=== PATIENT | male | born 1950 | race Caucasian/White ===

== ENCOUNTER 2019-05-02 11:47 | Observation (INO) ==
--- OUTSIDE RECORDS SUMMARY | 2019-05-02 11:51 | External Medical Summary | Continuity of Care Document ---
:1950 Author Name Veronica Bravo, Provider Address Unavailable Unavailable , Care Team Providers Name Role Phone Grey Hunt [email or web address] PCP, UNKNOWN Unavailable Unavailable Problems Active medical history not documented Allergies and Adverse Reactions Allergy history not documented Medications Medications not documented Procedures Procedures not documented Immunizations Immunizations not documented Plan of Treatment Planned Observations Planned Goals not documented Results No Known Results Results not documented
[2019-05-02] MEDS ORDERED: ASPIRIN CHEW 324 MG PO STA (12:00)
[2019-05-02 12:21] LABS: Basophils # (auto) 0.03 K/uL (0-0.2); Basophils % (auto) 0.4 %; Eosinophils % (auto) 2.7 %; Hematocrit (blood only) 42.5 % (42-52); Hemoglobin 14.7 g/dL (14.0-18.0); Immature Granulocytes # (auto) 0.03 K/uL (0.00-0.02); Immature Granulocytes % (auto) 0.4 %; Lymphocytes # (auto) 1.86 K/uL (1.2-3.4); Lymphocytes % (auto) 24.9 %; Mean Corpuscular Hgb Conc 34.6 g/dL (32-36); Mean Platelet Volume 9.8 fL (7.4-10.4); Monocytes # (auto) 0.54 K/uL (0.11-0.59); Monocytes % (auto) 7.2 %; Neutrophils # (auto) 4.82 K/uL (1.4-6.5); Neutrophils % (auto) 64.4 %; Platelet Count 260 K/uL (130-400); RDW Coefficient of Variation 12.4 % (11.5-14.5); RDW Standard Deviation 41.1 fL (36.4-46.3); Red Blood Count 4.67 M/uL (4.7-6.1); White Blood Count 7.48 K/uL (4.8-10.8)
--- NOTE | 2019-05-02 12:25 | XRay Report ---
XR chest 1V portable CLINICAL HISTORY: Atypical chest pain COMPARISON STUDY: No previous studies for comparison. FINDINGS: The heart is mildly enlarged. There are postsurgical changes of a midline sternotomy. There is no failure. There is no focal pulmonary consolidation. There are no pleural effusions.[ IMPRESSION: No active disease in the chest. Electronically signed by: Frotino Clarke M.D. 05/02/2019 12:23 PM
[2019-05-02 12:32] LABS: INR 1.1 (0.9-1.1); Prothrombin Time 10.9 Seconds (9.0-12.0)
[2019-05-02 12:39] LABS: Alanine Aminotransferase 46 U/L (12-78); Albumin Level 3.7 gm/dl (3.4-5.0); Aspartate Aminotransferase 24 U/L (15-37); BUN Creatinine Ratio 18.6 (10-20); Blood Urea Nitrogen 16 mg/dl (7-18); Calcium 8.8 mg/dl (8.5-10.1); Carbon Dioxide 27 mmol/L (21-32); Chloride 105 mmol/L (98-107); Creatinine Clr Calc Pharmacy 89.2 ml/min; Est GFR (African American) 100.6; Est GFR (Non-African American) 86.8; Glucose 206 mg/dl (70-99); Potassium 4.1 mmol/L (3.5-5.1); Sodium 138 mmol/L (136-145)
[2019-05-02 12:44] LABS: Albumin Globulin Ratio 1.1 (0.9-2); Alkaline Phosphatase 117 U/L (45-117); Bilirubin,Total 0.6 mg/dl (0.2-1); Globulin 3.5 gm/dl (2.5-4.0); Total Protein 7.2 gm/dl (6.4-8.2); Troponin I < 0.015 ng/ml (0-0.045)
--- NOTE | 2019-05-02 13:05 | Emergency Department Note ---
Entered by Shayy Newton acting as a scribe for Aristides Silver DO History of Present Illness General Chief complaint: Chest Pain Stated complaint: CHEST PAIN Time Seen by Provider: 05/02/19 11:51 Source: patient and family Mode of arrival: ambulatory Limitations: no limitations History of Present Illness Provider complaint: chest pain Onset (ago): day(s) (a few) Location: chest Pain Consistency: + other (episodic) Quality: + other (tight) Relieved By: + medication Exacerbated By: + movement Associated symptoms: + shortness of breath and + other (numbness); no diaphore sis Treatments prior to arrival: aspirin and other (NTG) The patient is a 69 year old male who presents to the Emergency Room with complaints of episodic chest pain that began a few days ago. The patient reports that todays episode occurred around 0730 while he was having breakfast. He describes it as a tightness. He states that he did have some left arm numbness as well as an associated shortness of breath. 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 The patient explains that he did have an episode the night before that lasted 20 minutes. He also reports that he did take a nitroglycerin which did help. He states that movement worsens his pain. He also notes that todays episode lasted 15 minutes. He denies any shortness of breath when lying flat. He explains that he did have [address] Jones four years ago but denies any cardiac stents. He reports that his last heart catheterization was in February 2015. He also states that he had not taken any nitroglycerin since this time. He denies any current chest pain. He denies taking any blood thinners but notes he does take a daily low-dose aspirin. He reports that he did take one this morning. The at bedside states that the patient looked dumont during this mornings episode but denies any diaphoresis. Home Medications Home Medications Medication Instructions Recorded Confirmed Type ascorbic acid (vitamin C) [Vitamin 500 mg PO QAM 05/02/19 05/02/19 History C] aspirin 81 mg PO DAILY 05/02/19 05/02/19 History atorvastatin 80 mg PO HS 05/02/19 05/02/19 History benzonatate [Tessalon Perles] 100 mg PO TID PRN 05/02/19 05/02/19 History diphenhydramine-acetaminophen 2 tab PO HS PRN 05/02/19 05/02/19 History [Tylenol PM Extra Strength] ferrous sulfate 325 mg PO DAILY 05/02/19 05/02/19 History glipizide 10 mg PO BID 05/02/19 05/02/19 History levothyroxine [Levoxyl] 200 mcg PO QAM 05/02/19 05/02/19 History lisinopril 2.5 mg PO QPM 05/02/19 05/02/19 History metformin 500 mg PO BID 05/02/19 05/02/19 History montelukast 10 mg PO QAM 05/02/19 05/02/19 History nitroglycerin 0.4 mg SUBLINGUAL UD 05/02/19 05/02/19 History omega 2-pnr-khc-fish oil [Fish Oil] 1 cap PO QAM 05/02/19 05/02/19 History omeprazole 20 mg PO HS 05/02/19 05/02/19 History sertraline 25 mg PO QAM 05/02/19 05/02/19 History tramadol 50 mg PO Q6H PRN 05/02/19 05/02/19 History acetaminophen [Tylenol Extra 1,000 mg PO TID PRN #60 tab 05/03/19 Rx Strength] Allergies Allergy/AdvReac Type Severity Reaction Status Date / Time No Known Allergies Allergy Unverified 05/02/19 12:30 Past Med/Surg History Medical History Hypothyroidism (Chronic) Mood disorder (Chronic) Diabetes mellitus, type II (Chronic) CAD (coronary artery disease) (Chronic) Surgical History History of coronary artery bypass graft (Chronic) CABG x 4 at [facility] [place] 03/15/15 History of cardiac cath (Chronic ~02/2015) Family History Other Family history unknown Social History Preferred Language: Kiswahili Communication Ability: Effective Pharmacist 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 Beliefs That Will Affect Care: None marital status: Current Living Situation: Spouse Other Information That Helps Us Care for You: No Feels Safe at Home: Yes Safety Concerns: Feels Safe At This Time Smoking Status: Former smoker Tobacco Type: cigarettes and smokeless tobacco Years Smoked: 60 Cigarettes Per Day: no longer for awhile Do You Dip or Chew Tobacco: No Smoking End Date: no longer for awhile Second Hand Exposure: No T obacco Cessation Education Requested by Patient: No Hx Alcohol Use: Yes Alcohol type: beer Hx Substance Use: No Review of Systems See HPI for pertinent positives & negatives. and A total of 10 systems reviewed and were otherwise negative Physical Exam Vital Signs Vital Signs - 24 hr 05/02/19 11:48 05/02/19 11:55 05/02/19 11:58 Temperature 36.9 C Temperature Source Oral Sepsis Recent Fever Within 48 Hours Yes Sepsis New/Unexplained Change in Mental Status No Sepsis Action Taken by Nursing No Action Required Pulse Rate 87 62 Pulse Rate [Left Finger] Pulse Rate from SpO2 Sensor 63 Respiratory Rate 16 15 Respiratory Effort / Characteristics Non-Labored Respiratory Depth Normal Blood Pressure 155/81 H 147/92 H Blood Pressure [Left Arm] Blood Pressure Mean 105 110 Blood Pressure Mean [Left Arm] Pulse Oximetry 94 94 Oxygen Delivery Method Room Air Room Air 05/02/19 12:02 05/02/19 12:20 05/02/19 12:50 Temperature Temperature Source Sepsis Recent Fever Within 48 Hours Sepsis New/Unexplained Change in Mental Status Sepsis Action Taken by Nursing Pulse Rate 68 61 Pulse Rate [Left Finger] 63 Pulse Rate from SpO2 Sensor 68 Respiratory Rate 22 18 Respiratory Effort / Characteristics Respiratory Depth Blood Pressure Blood Pressure [Left Arm] 154/83 H Blood Pressure Mean Blood Pressure Mean [Left Arm] 106 Pulse Oximetry 94 95 Oxygen Delivery Method Room Air Room Air 05/02/19 13:31 Temperature Temperature Source Sepsis Recent Fever Within 48 Hours Sepsis New/Unexplained Change in Mental Status Sepsis Action Taken by Nursing Pulse Rate Pulse Rate [Left Finger] 58 L Pulse Rate from SpO2 Sensor Respiratory Rate 22 Respiratory Effort / Characteristics Respiratory Depth Blood Pressure Blood Pressure [Left Arm] 153/86 H Blood Pressure Mean Blood Pressure Mean [Left Arm] 108 Pulse Oximetry 95 Oxygen Delivery Method Room Air GENERAL: Patient is awake, alert, and in no acute distress.Patient is resting comfortably and showing no signs of anxiety EYES: The conjunctivae are clear. The pupils are round and reactive. EARS, NOSE, MOUTH AND THROAT: The nose is without any evidence of any deformity. Mucous membranes are moist.Tongue is midline NECK: The neck is nontender and supple. RESPIRATORY: Normal respiratory effort is noted. There is no evidence of wheezing rhonchi or rales to auscultation. CARDIOVASCULAR: Regular rate and rhythm noted. There no murmurs rubs or gallops normal S1 normal S2 GASTROINTESTINAL: The abdomen is soft. Bowel sounds are present in all quadrants. Abdomen is nontender. MUSCULOSKELETAL/EXTREMITIES: There is no evidence of gross deformity. Full range of motion is noted in the hips and shoulders. SKIN: There is no obvious evidence of any rash. There are no petechiae, pallor or cyanosis noted. NEUROLOGIC: Patient is awake alert and oriented x3. Course 1153: Past medical records reviewed. The patient was evaluated in room C3. A complete history and physical examination was performed. 1227: I checked on the patient. 1255: I updated the patient in his results and he is agreeable with the treatment plan. 1302: I reviewed the patient's case with Cass Bryant PA-C - [facility]. She, in conjunction with Dr. Bailey, will evaluate the patient for further management. Administered Medications Discontinued Medications Acetaminophen (Tylenol) 650 mg PO Q4H PRN PRN Reason: Pain or Fever Stop: 06/01/19 15:10 Last Admin: 05/03/19 00:22 Dose: 650 mg Documented by: [id number] Ascorbic Acid (Vitamin C) 500 mg PO QAM PATRICIO Stop: 06/02/19 08:59 Last Admin: 05/03/19 08:53 Dose: 500 mg Documented by: [id number] Aspirin (Aspirin) 243 mg PO NOW [facility] Stop: 05/02/19 12:01 Last Admin: 05/02/19 12:15 Dose: 243 mg Documented by: [id number] Aspirin (Ecotrin Ectab) 81 mg PO DAILY PATRICIO Stop: 06/02/19 08:59 Last Admin: 05/03/19 08:54 Dose: 81 mg Documented by: [id number] Atorvastatin Calcium (Lipitor) 80 mg PO HS PATRICIO Stop: 06/01/19 20:59 Last Admin: 05/02/19 20:18 Dose: 80 mg Documented by: [id number] Enoxaparin Sodium (Lovenox) 40 mg SQ Q24H PATRICIO Stop: 06/01/19 15:59 Last Admin: 05/02/19 16:31 Dose: 40 mg Documented by: [id number] Ferrous Sulfate (Feosol) 325 mg PO DAILY PATRICIO Stop: 06/02/19 08:59 Last Admin: 05/03/19 08:54 Dose: 325 mg Documented by: [id number] Fish Oil ([place]-3 (Purified Fish Oil)) 1 gm PO QAM [facility] Stop: 06/02/19 08:59 Last Admin: 05/03/19 08:54 Dose: 1 gm Documented by: [id number] Insulin Aspart (Novolog Flexpen) 0 units SC ACHS PATRICIO Stop: 06/01/19 15:29 Last Admin: 05/03/19 12:00 Dose: 4 units Documented by: [id number] Cosigned by: [id number] Admin: 05/03/19 08:54 Dose: 1 units Documented by: [id number] Cosigned by: [id number] Admin: 05/02/19 20:18 Dose: Not Given Documented by: [id number] Cosigned by: [id number] Admin: 05/02/19 16:32 Dose: 10 units Documented by: [id number] Cosigned by: [id number] Levothyroxine Sodium (Synthroid) 200 mcg PO DAILYBB [facility] Stop: 06/02/19 06:29 Last Admin: 05/03/19 05:57 Dose: 200 mcg Documented by: [id number] Lisinopril (Zestril) 2.5 mg PO QPM [facility] Stop: 06/01/19 20:59 Last Admin: 05/02/19 20:18 Dose: 2.5 mg Documented by: [id number] Montelukast Sodium (Singulair) 10 mg PO QAM PATRICIO Stop: 06/02/19 08:59 Last Admin: 05/03/19 08:54 Dose: 10 mg Documented by: [id number] Pantoprazole Sodium (Protonix) 40 mg PO HS [facility] Stop: 06/01/19 20:59 Last Admin: 05/02/19 20:18 Dose: 40 mg Documented by: [id number] Perflutren Lipid Microsphere (Definity) 1.5 ml IV ONCE ONE Stop: 05/03/19 11:47 Last Admin: 05/03/19 11:47 Dose: 2 ml Documented by: [id number] Sertraline HCl (Zoloft) 25 mg PO QAM PATRICIO Stop: 06/02/19 08:59 Last Admin: 05/03/19 08:53 Dose: 25 mg Documented by: [id number] Medical Decision Making Differential Diagnosis Differential diagnosis includes: cardiac ischemia, aortic dissection, pulmonary embolism, pneumonia, pneumothorax, musculoskeletal, infections, pericarditis, myocarditis, unstable angina, esophageal rupture, gastrointestinal, as well as others were entertained. Medical Records Attestation: I reviewed the patient's medical records. Home Medications Current Medication List: was personally reviewed by me Laboratory Data Attestation: I reviewed the patient's lab results. Result diagrams: 05/03/19 06:32 05/03/19 06:32 Lab Results 05/02/19 05/02/19 05/02/19 Range/Units 12:08 12:08 12:08 WBC 7.48 (4.8-10.8) K/uL RBC 4.67 L (4.7-6.1) M/uL Hgb 14.7 (14.0-18.0) g/dL Hct 42.5 (42-52) % MCV 91.0 (80-100) fL MCH 31.5 (25-34) pg MCHC 34.6 (32-36) g/dL RDW Std Deviation 41.1 (36.4-46.3) fL RDW Coeff of Liang 12.4 (11.5-14.5) % Plt Count 260 (130-400) K/uL MPV 9.8 (7.4-10.4) fL Immature Gran % (Auto) 0.4 % Neut % (Auto) 64.4 % Lymph % (Auto) 24.9 % [place] % (Auto) 7.2 % Eos % (Auto) 2.7 % Baso % (Auto) 0.4 % Immature Gran # (Auto) 0.03 H (0.00-0.02) K/uL Neut # (Auto) 4.82 (1.4-6.5) K/uL Lymph # (Auto) 1.86 (1.2-3.4) K/uL [place]ascade # (Auto) 0.54 (0.11-0.59) K/uL Eos # (Auto) 0.20 (0-0.5) K/uL Baso # (Auto) 0.03 (0-0.2) K/uL PT 10.9 (9.0-12.0) Seconds INR 1.1 (0.9-1.1) APTT 26.0 (21.0-31.0) Seconds PTT Ratio 1.0 Sodium 138 (136-145) mmol/L Potassium 4.1 (3.5-5.1) mmol/L Chloride 105 (98-107) mmol/L Carbon Dioxide 27 (21-32) mmol/L Anion Gap 6.0 (3-11) BUN 16 (7-18) mg/dl Creatinine 0.87 (0.6-1.4) mg/dl Est Cr Clr Drug Dosing 89.2 ml/min Est GFR ( Amer) 100.6 Est GFR (Non-Af Amer) 86.8 BUN/Creatinine Ratio 18.6 (10-20) Glucose 206 H (70-99) mg/dl Calcium 8.8 (8.5-10.1) mg/dl Total Bilirubin 0.6 (0.2-1) mg/dl AST 24 (15-37) U/L ALT 46 (12-78) U/L Alkaline Phosphatase 117 (45-117) U/L Troponin I < 0.015 (0-0.045) ng/ml Total Protein 7.2 (6.4-8.2) gm/dl Albumin 3.7 (3.4-5.0) gm/dl Globulin 3.5 (2.5-4.0) gm/dl Albumin/Globulin Ratio 1.1 (0.9-2) Lipase 118 (73-393) U/L Urine Color Urine Appearance (Clear) Urine pH (4.5-7.5) Ur Specific [place] (1.000-1.030) Urine Protein (Negative) Urine Glucose (UA) (Negative) Urine Ketones (Negative) Urine Blood (Negative) Urine Nitrite (Negative) Urine Bilirubin (Negative) Urine Urobilinogen (Negative) Ur Leukocyte Esterase (Negative) 05/02/19 Range/Units 13:30 WBC (4.8-10.8) K/uL RBC (4.7-6.1) M/uL Hgb (14.0-18.0) g/dL Hct (42-52) % MCV (80-100) fL MCH (25-34) pg MCHC (32-36) g/dL RDW Std Deviation (36.4-46.3) fL RDW Coeff of Liang (11.5-14.5) % Plt Count (130-400) K/uL MPV (7.4-10.4) fL Immature Gran % (Auto) % Neut % (Auto) % Lymph % (Auto) % [place] % (Auto) % Eos % (Auto) % Baso % (Auto) % Immature Gran # (Auto) (0.00-0.02) K/uL Neut # (Auto) (1.4-6.5) K/uL Lymph # (Auto) (1.2-3.4) K/uL [place] # (Auto) (0.11-0.59) K/uL Eos # (Auto) (0-0.5) K/uL Baso # (Auto) (0-0.2) K/uL PT (9.0-12.0) Seconds INR (0.9-1.1) APTT (21.0-31.0) Seconds PTT Ratio Sodium (136-145) mmol/L Potassium (3.5-5.1) mmol/L Chloride (98-107) mmol/L Carbon Dioxide (21-32) mmol/L Anion Gap (3-11) BUN (7-18) mg/dl Creatinine (0.6-1.4) mg/dl Est Cr Clr Drug Dosing ml/min Est GFR ( Amer) Est GFR (Non-Af Amer) BUN/Creatinine Ratio (10-20) Glucose (70-99) mg/dl Calcium (8.5-10.1) mg/dl Total Bilirubin (0.2-1) mg/dl AST (15-37) U/L ALT (12-78) U/L Alkaline Phosphatase (45-117) U/L Troponin I (0-0.045) ng/ml Total Protein (6.4-8.2) gm/dl Albumin (3.4-5.0) gm/dl Globulin (2.5-4.0) gm/dl Albumin/Globulin Ratio (0.9-2) Lipase (73-393) U/L Urine Color Yellow Urine Appearance Clear (Clear) Urine pH 5.5 (4.5-7.5) Ur Specific [place] 1.011 (1.000-1.030) Urine Protein Negative (Negative) Urine Glucose (UA) 1+ H (Negative) Urine Ketones Negative (Negative) Urine Blood Negative (Negative) Urine Nitrite Negative (Negative) Urine Bilirubin Negative (Negative) Urine Urobilinogen Negative (Negative) Ur Leukocyte Esterase Negative (Negative) Imaging Data Radiologist's Impression: Radiology results as stated below per my review and the radiologist's interpretation: XR chest 1V portable CLINICAL HISTORY: Atypical chest pain COMPARISON STUDY: No previous studies for comparison. FINDINGS: The heart is mildly enlarged. There are postsurgical changes of a midline sternotomy. There is no failure. There is no focal pulmonary consolidation. There are no pleural effusions.[ IMPRESSION: No active disease in the chest. Electronically signed by: Fortino Clarke M.D. 05/02/2019 12:23 PM ECG Data Attestation: I personally reviewed and interpreted this ECG as follows: Indication: chest pain Rate (beats per minute): 68 Rhythm: normal sinus Findings: no ST depression, no ST elevation and no ectopy Comparison ECG Date: no prior available Blood Pressure Blood Pressure Findings: Elevated blood pressure Blood Pressure Disposition: further management by hospitalist TIFFANIE Angeles The patient is a 69-year-old male who has a history of coronary artery disease and coronary artery bypass grafting who presented to the emergency department for an evaluation of chest discomfort. The patient has not had cardiac symptoms until recently. He has had at least 2 episodes where he has had to use nitroglycerin where as he is never had use nitroglycerin in the past. The patient's most recent episode occurred this morning. He did have some strenuous activity prior to the onset of the symptoms and took nitroglycerin which resolved his pain. I discussed the patient's laboratory and radiographic studies with him. I discussed the limitations of the emergency department work- up for chest pain with him. At this time he has no pain. Because of his history and comorbidities I discussed this case with the on-call [facility] hospitalist group. They have agreed to evaluate the patient in the emerge department for further management and disposition. Impression & Plan Chest pain Discharge Plan Visit Data *Final* Discharge Date/Time: 05/02/19 14:44 Chief Complaint: Chest Pain Stated Complaint: CHEST PAIN ED Provider: Aristides Silver Discharge Problem: Chest pain Patient Disposition: Admitted As Inpatient Condition: Good Discharge Instructions Interventions: ED Discharge Assessment Last Done: 05/02/19 14:44 The scribe's documentation has been prepared under my direction and personally reviewed by me in its entirety. I confirm that the note above accurately reflects all work, treatment, procedures, and medical decision making performed by me.
--- NOTE | 2019-05-02 14:18 | History & Physical Report ---
Date of Service May 02, 2019 Assessment & Plan (1) Chest pain: (2) History of coronary artery bypass graft: This is a 69-year-old male with a PMH of CAD (s/p CABG x 4 in 2014), DM II and hypothyroidism who presents with intermittent chest pain beginning 2 days ago that has since resolved. [place] [facility] Has not used ntg since 2015 until this morning, now pain free -Initial troponin negative. EKG with NSR, no ischemic changes. CXR without active disease in chest -Trend serial cardiac enzymes, check 2D echo, monitor on telemetry -Repeat EKG in am. Fasting lipid panel and a1c ordered -NPO after midnight for possible stress test -Routine cardiology consult (3) Diabetes mellitus, type II: A1c of 7.8 in Oct 2018. Repeat ordered -May be less controlled due to recent PO steroid courses for URIs this spring -Hold home agents -SSI while in-patient -BSG AC HS (4) CAD (coronary artery disease): Continue aspirin, statin (5) Hypothyroidism: Continue levothyroxine DVT Ppx: SQ lovenox Code status: FULL PCP: ESPERANZA Padilla Dispo: Observation tele. Plan to return home once medically stable. Patient seen in collaboration with Dr. Bailey. Please see addendum. History of Present Illness Chief Complaint: Chest pain Primary Care Provider: Larry Padilla PA-C This is a 69-year-old male with a PMH of CAD (s/p CABG x 4 in 2014), DM II, hypothyroidism who presents with intermittent chest pain beginning 2 days ago. Patient first experienced chest pain 2 nights ago when sitting in his recliner. Describes pain as squeezing across chest with radiation down left arm. It resolved spontaneously after 20 minutes. Earlier today, patient had an active morning with dog walking and first developed chest pain after sitting down for breakfast around 0730. Described it as a more intense squeezing pain across his chest with associated numbness in left arm and shortness of breath. No diaphoresis, nausea or vomiting. Episode lasted for 15 minutes and then resolved spontaneously. Had another episode a few hours later after working on a house project that resolved after 1 dose of nitro. Had third episode of pain just before lunch and was brought by to ED for further evaluation. Received aspirin in route and was chest pain-free by time of arrival. Denies any fever, chills, lightheadedness, headache, palpitations, SOB, wheezing, nausea, vomiting, abdominal pain, dysuria, diarrhea or constipation. Follows with Dr. Caicedo in cardiology clinic. Reports not having needed nitroglycerin since CABG in 2014 until this morning. Patient is hemodynamically stable. EKG with a normal sinus rhythm and no acute ischemic change. Initial troponin negative. Chest pain without active disease in chest. Will be monitored on telemetry. Allergies Allergy/AdvReac Type Severity Reaction Status Date / Time No Known Allergies Allergy Unverified 05/02/19 12:30 Home Medications Home Medications Medication Instructions Recorded Confirmed Type ascorbic acid (vitamin C) [Vitamin 500 mg PO QAM 05/02/19 05/02/19 History C] aspirin 81 mg PO DAILY 05/02/19 05/02/19 History atorvastatin 80 mg PO HS 05/02/19 05/02/19 History benzonatate [Tessalon Perles] 100 mg PO TID PRN 05/02/19 05/02/19 History diphenhydramine-acetaminophen 2 tab PO HS PRN 05/02/19 05/02/19 History [Tylenol PM Extra Strength] ferrous sulfate 325 mg PO DAILY 05/02/19 05/02/19 History glipizide 10 mg PO BID 05/02/19 05/02/19 History levothyroxine [Levoxyl] 200 mcg PO QAM 05/02/19 05/02/19 History lisinopril 2.5 mg PO QPM 05/02/19 05/02/19 History metformin 500 mg PO BID 05/02/19 05/02/19 History montelukast 10 mg PO QAM 05/02/19 05/02/19 History nitroglycerin 0.4 mg SUBLINGUAL UD 05/02/19 05/02/19 History omega 3-fsn-mtk-fish oil [Fish Oil] 1 cap PO QAM 05/02/19 05/02/19 History omeprazole 20 mg PO HS 05/02/19 05/02/19 History sertraline 25 mg PO QAM 05/02/19 05/02/19 History tramadol 50 mg PO Q6H PRN 05/02/19 05/02/19 History Past Med/Surg History Medical History Hypothyroidism (Chronic) Mood disorder (Chronic) Diabetes mellitus, type II (Chronic) CAD (coronary artery disease) (Chronic) Surgical History History of coronary artery bypass graft (Chronic) [place] [facility] [place] History of cardiac cath (Chronic ~02/2015) Family History Other Family history unknown Social History Preferred Language: [place] Communication Ability: Effective Customer Service Advocate Required: No Beliefs That Will Affect Care: None marital status: Current Living Situation: Spouse Other Information That Helps Us Care for You: No Feels Safe at Home: Yes Safety Concerns: Feels Safe At This Time Smoking Status: Former smoker Tobacco Type: cigarettes and smokeless tobacco Years Smoked: 60 Cigarettes Per Day: no longer for awhile Do You Dip or Chew Tobacco: No Smoking End Date: no longer for awhile Second Hand Exposure: No Tobacco Cessation Education Requested by Patient: No Hx Alcohol Use: Yes Alcohol type: beer Hx Substance Use: No Review of Systems Constitutional: no fever, no chills and no weakness Eyes: no diplopia Ear, Nose, Mouth, Throat: + nasal congestion; no sore throat and no dysphagia Respiratory: + dyspnea on exertion; no change in sputum, no dyspnea and no wheezing Cardiovascular: + chest pain and + radiating jaw, neck or arm pain; no palpitations, no syncope and no edema Gastrointestinal: no abdominal pain, no nausea, no vomiting and no change in stools Genitourinary: no dysuria Musculoskeletal: no muscle weakness Integumentary: no rash healing abscess on neck Neurologic: no gait abnormality, no falls, no localized weakness and no headache(s) Physical Exam Physical Exam: General Appearance: WD/WN, no apparent distress, resting comfortably Head: normocephalic, atraumatic Eyes: normal inspection, PERRL, EOMI ENT: hearing grossly normal, pharynx normal (moist mucous membranes) Neck: supple, no JVD, no adenopathy Respiratory/Chest: no chest wall tenderness, lungs clear to auscultation. No wheezes, rales or rhonci. No respiratory distress or accessory muscle use Cardiovascular: regular rate, rhythm, no murmur, normal peripheral pulses Abdomen/GI: normal bowel sounds, soft, non-tender to palpation Extremities/Musculoskelatal: normal inspection, no calf tenderness, normal capillary refill, no pedal edema Neurologic/Psych: alert, normal mood/affect, oriented x 3 Skin: normal color, warm/dry Results & Data Vital Signs (Past 12 Hours) Vital Signs Temp Pulse Pulse Resp BP BP Pulse Ox 05/02/19 13:31 58 L 22 153/86 H 95 05/02/19 12:50 63 18 154/83 H 95 05/02/19 12:20 61 94 05/02/19 12:02 68 22 05/02/19 11:58 94 05/02/19 11:55 62 15 147/92 H 05/02/19 11:48 36.9 C 87 16 155/81 H 94 Laboratory Results Short CBC 05/02/19 Range/Units 12:08 WBC 7.48 (4.8-10.8) K/uL Hgb 14.7 (14.0-18.0) g/dL Hct 42.5 (42-52) % Plt Count 260 (130-400) K/uL BMP 05/02/19 12:08 Sodium 138 Potassium 4.1 Chloride 105 Carbon Dioxide 27 BUN 16 Creatinine 0.87 Glucose 206 H Calcium 8.8 Cardiac Enzymes 05/02/19 Range/Units 12:08 Troponin I < 0.015 (0-0.045) ng/ml Liver Function 05/02/19 Range/Units 12:08 Total Bilirubin 0.6 (0.2-1) mg/dl AST 24 (15-37) U/L ALT 46 (12-78) U/L Alkaline Phosphatase 117 (45-117) U/L Albumin 3.7 (3.4-5.0) gm/dl Urine 05/02/19 Range/Units 13:30 Urine Color Yellow Urine Appearance Clear (Clear) Urine pH 5.5 (4.5-7.5) Ur Specific [place] 1.011 (1.000-1.030) Urine Protein Negative (Negative) Urine Glucose (UA) 1+ H (Negative) Diagnostic Findings CXR: IMPRESSION: No active disease in the chest. ECG Rhythm: normal sinus Supervising Physician Co-Signing Physician Notes Pt was seen and examined. Agreed with Cass MATA exam, assessment and plan. 69-year-old male with a PMH of CAD (s/p CABG x 4 in 2014), DM II, hypothyroidism presents with chest pain. Pt said that 2 days ago he had chest pain while sitting in his recliner. He said that pain last about 20minutes. He said that today he had 3 episodes of chest pain and had to take a nitro subl. Chest XRay done in the ER showed no acute finding. Troponinx2 negative. EKG showed no ischemic changes. Continue aspirin and statin. Not on beta rigoberto, not sure why. Consider to add a low dose beta rigoberto. Will get an echo. Cardiology consult. Will keep NPO after midnight. Continue monitor in Tele. Please refer to Cass MATA documentation for other problems. MD Lynn
[2019-05-02 14:24] LABS: Appearance Urine Clear (Clear); Bilirubin Urine Negative (Negative); Blood Urine Negative (Negative); Color Urine Yellow; Glucose Urine UA 1+ (Negative); Ketones Urine Negative (Negative); Leukocyte Esterase Urine Negative (Negative); Nitrite Urine Negative (Negative); Protein Urine Negative (Negative); Specific Gravity Urine 1.011 (1.000-1.030); Urobilinogen Urine Negative (Negative); pH Urine 5.5 (4.5-7.5)
[2019-05-02] MEDS ORDERED: GLUCAGON FOR INJ 1 MG VIAL SQ PRN (15:11)
[2019-05-02] MEDS ORDERED: TRAMADOL HCL 50 MG TABLET PO PRN (15:11)
[2019-05-02] MEDS ORDERED: ACETAMINOPHEN 325 MG TAB PO PRN (15:11)
[2019-05-02] MEDS ORDERED: GLUCOSE 40% GEL 15 GM TUBE PO PRN (15:11)
[2019-05-02] MEDS ORDERED: NITROGLYCERIN SL 0.4 MG/TAB TAB SL PRN (15:11)
[2019-05-02] MEDS ORDERED: NON-FORMULARY MEDICATION (Diphenhydramine-Acetaminophen [Tylenol Pm Extra Strength] 2 TAB) PO PRN (15:11)
[2019-05-02] MEDS ORDERED: ONDANSETRON INJ 2 MG/ML 2 ML VIAL IV PRN (15:11)
[2019-05-02] MEDS ORDERED: BENZONATATE 100 MG CAPSULE PO PRN (15:11)
[2019-05-02] MEDS ORDERED: POLYETHYLENE (MIRALAX) 17 GM PACK PO PRN (15:11)
[2019-05-02] MEDS ORDERED: DEXTROSE 50% 50 ML SYRINGE IV PRN (15:11)
[2019-05-02] MEDS ORDERED: GLUCOSE 10 TABS/TUBE PO PRN (15:11)
[2019-05-02] MEDS ORDERED: CARBOHYDRATES FOR HYPOGLYCEMIA PO PRN (15:11)
[2019-05-02] MEDS ORDERED: ENOXAPARIN INJ 40 MG/0.4 ML SYR SQ SCH (16:00)
[2019-05-02] MEDS: INSULIN ASPART 100 UNITS/ML 3 ML PEN SC SCH ×2 (16:32→20:18)
[2019-05-02] MEDS ORDERED: ATORVASTATIN 40 MG TAB PO SCH (21:00)
[2019-05-02] MEDS ORDERED: PANTOprazole 40 MG TAB PO SCH (21:00)
[2019-05-02] MEDS ORDERED: LISINOPRIL 2.5 MG TAB PO SCH (21:00)
[2019-05-03] MEDS ORDERED: LEVOTHYROXINE SODIUM 200 MCG TABLET PO SCH (06:30)
[2019-05-03 06:51] LABS: Hematocrit (blood only) 40.5 % (42-52); Hemoglobin 13.5 g/dL (14.0-18.0); Mean Corpuscular Hgb Conc 33.3 g/dL (32-36); Mean Corpuscular Volume 90.8 fL (80-100); Platelet Count 231 K/uL (130-400); Red Blood Count 4.46 M/uL (4.7-6.1); White Blood Count 7.03 K/uL (4.8-10.8)
[2019-05-03 07:07] LABS: BUN Creatinine Ratio 21.8 (10-20); Calcium 8.3 mg/dl (8.5-10.1); Creatinine Clr Calc Pharmacy 94.7 ml/min; Est GFR (African American) 103.1; Potassium 4.3 mmol/L (3.5-5.1)
[2019-05-03 07:51] LABS: Estimated Average Glucose 243 mg/dl; Hemoglobin A1C 10.1 % (4.5-5.6)
[2019-05-03] MEDS: INSULIN ASPART 100 UNITS/ML 3 ML PEN SC SCH ×2 (08:54→12:00)
[2019-05-03] MEDS ORDERED: ASCORBIC ACID 500 MG TAB PO SCH (09:00)
[2019-05-03] MEDS ORDERED: ASPIRIN 81 MG ECTAB PO SCH (09:00)
[2019-05-03] MEDS ORDERED: SERTRALINE HCL 50 MG TABLET PO SCH (09:00)
[2019-05-03] MEDS ORDERED: OMEGA-3 (PURIFIED FISH OIL) 1 GM CAP PO SCH (09:00)
[2019-05-03] MEDS ORDERED: FERROUS SULFATE 325 MG TAB PO SCH (09:00)
[2019-05-03] MEDS ORDERED: MONTELUKAST SODIUM 10 MG TABLET PO SCH (09:00)
--- NOTE | 2019-05-03 11:06 | Consultation Report ---
DATE OF CONSULTATION: 05/03/2019 INPATIENT CARDIOLOGY CONSULTATION CONSULTATION REQUESTED BY: Cass Bryant PA-C. REASON FOR CONSULTATION: Chest pain. HISTORY OF PRESENT ILLNESS: Mr. Grace is a very pleasant 69-year-old gentleman who normally follows with myself as an outpatient for his history of coronary artery disease. He presented to [facility] Emergency Department in the afternoon of 05/02/2019 with complaints of chest and shoulder pain. The patient states approximately 2 days prior to presentation, he noticed when he sat down in the evening and was sitting in his chair watching television, he developed significant chest pain. He described it as a squeezing sensation in the center of his chest that was rather severe. This was associated with numbness down his left arm. This lasted for approximately 20 minutes. At that time, he did take his nitroglycerin, but the pain lasted for a few minutes afterwards and then seemed to slowly resolve on its own. The next day, the patient remained very active cutting approximately 20 acres of grass and doing work in his shop including painting and walking back into his house from that shed, he again developed the chest discomfort and left arm numbness. It was the exact same as the previous night and again he denied any associated symptoms of shortness of breath, diaphoresis, nausea, lightheadedness, dizziness, or syncope. Again, he took sublingual nitroglycerin and a few minutes later it resolved on its own. Then the morning of presentation, he had an episode while sitting eating breakfast, at that time his brought him to the Emergency Department. Of note, he states this is completely different than his anginal equivalent he had prior to bypass. He also notes that he has had significant bronchitis and has been coughing very harshly for the last several months and it just seemed to resolve the last week. He has also been having issues with his shoulder and he follows with Dr. Steve of [facility]. PAST SURGICAL HISTORY: 1. Coronary artery disease status post off pump coronary bypass grafting surgery x4 with a RUSSELL to the LAD, vein graft to the PDA, vein graft to the first obtuse marginal and vein graft to the diagonal. 2. Colonoscopy. 3. Variceal repair. 4. Fractured jaw. 5. Hernia repair, multiple. 6. Tonsil and adenoidectomy. MEDICAL ILLNESSES: 1. Coronary artery disease, status post CABG in 2014. 2. GERD. 3. Hypertension. 4. Diabetes. 5. Hypothyroidism. 6. Degenerative joint disease. FAMILY HISTORY: Noncontributory. SOCIAL HISTORY: Remote tobacco use, occasional alcohol. Denies any recreational drug use. , lives at home with his . He is very active at his home and his camp as well as hunting and fishing. REVIEW OF SYSTEMS: As per HPI. All other review of systems reviewed and negative at this time. ALLERGIES: TETANUS TOXOID. MEDICATIONS AN OUTPATIENT: 1. Aspirin 81 mg daily. 2. Atorvastatin 80 mg daily. 3. Lisinopril 2.5 mg daily. 4. Fish oil daily. 5. Iron daily. 6. Prilosec daily. 7. Zoloft daily. 8. Singular daily. 9. Metformin b.i.d. 10. Levoxyl daily. 11. Glucotrol b.i.d. PHYSICAL EXAMINATION: VITALS: Temperature 36.6, pulse 58, respiratory rate 12, blood pressure 124/72. GENERAL: Awake, alert, oriented x3 in no acute distress. HEENT: Normocephalic, atraumatic. Pupils equal, round, reactive to light and accommodation. Extraocular muscles intact. Anicteric sclerae. Moist mucous membranes. NECK: No JVD, no bruit. CARDIOVASCULAR: Regular. Positive S4. Normal S1 and S2. No S3. A 2/6 mid to late systolic ejection murmur greatest at the right sternal border second intercostal space with radiation to the bilateral carotids. No rubs. PULMONARY: Clear to auscultation bilaterally. No rales, rhonchi, or wheezing. ABDOMEN: Bowel sounds x4, soft. No rebound, guarding, or tenderness. No organomegaly. EXTREMITIES: No clubbing, cyanosis or edema. +2 pedal pulses bilaterally. SKIN: Warm and dry. MUSCULOSKELETAL: Deep palpation of his sternum, I was unable to elicit any discomfort. TEST RESULTS: A 12-lead EKG performed in the Emergency Department independently reviewed at this time shows sinus rhythm with occasional premature atrial complexes at 68 beats per minute, normal axis, normal intervals, no signs of ischemia. Resting echocardiogram showed normal LV chamber size with mild concentric LVH, normal LV systolic function, abnormal septal wall motion consistent with postoperative state, otherwise normal. Moderate aortic valve sclerosis without stenosis, mild aortic regurgitation. LABORATORY STUDIES OF SIGNIFICANCE: Troponin negative x2. Stress test was nonischemic. IMPRESSION: 1. Musculoskeletal chest pain with likely muscle strain due to coughing. 2. Degenerative shoulder disease. 3. Coronary artery disease, stable. 4. Hypertension, controlled. RECOMMENDATIONS: It was my pleasure to see Mr. Grace in consultation today. From a cardiac standpoint, given the fact that his stress test was nonischemic with reproduction of his chest pain, I do believe it is due to musculoskeletal strain. So, no further cardiac testing or intervention is necessary at this time. I have recommended supportive care and in terms of his shoulder discomfort, I would recommend following up with orthopedic surgery for possible further intervention. Otherwise, no medication changes will be made at this time, no sooner cardiac followup is necessary and he will follow up with me as scheduled in December. It is okay to discharge the patient to home from a cardiac standpoint.
[2019-05-03] MEDS ORDERED: PERFLUTREN LIPID MICROSPHERE (DEFINITY) IV ONE (11:46)
--- NOTE | 2019-05-03 13:08 | Hospitalist Progress Note ---
Date of Service May 03, 2019 Assessment & Plan (1) Chest pain: Presented to ED with chest pain that occurred after doing a lot of yard work. Known ischemic heart disease, status post CABG. No acute EKG changes. Serum troponins negative. Seen in consultation by Cardiology. Echo demonstrated normal left ventricular wall motion and systolic function. Stress test did not show any evidence of stress-induced ischemia. Chest pain felt to be musculoskeletal in origin. Alternatively, consider GI etiology such as GERD or esophageal spasm. Further evaluation as necessary if symptoms persist. (2) CAD (coronary artery disease): CAD, s/p CABG 2014. Acute DE and stress-induced ischemia ruled out as discussed above. Continue aspirin, lisinopril, statin. (3) Heart murmur: II/ systolic murmur at base. Echo demonstrated aortic valve sclerosis without significant stenosis as well as mild aortic regurgitation. (4) Diabetes mellitus, type II: Diabetes mellitus type 2 managed with metformin and glipizide. Blood sugars as high as 214. Hemoglobin A1c 10.1. Recently had steroid injection for shoulder pain and systemic steroids for bronchitis. Blood sugars were in the 400s a few weeks ago while taking prednisone. Discharge on usual regimen with close follow-up with PCP. (5) Dyslipidemia: Calculated LDL 46. Continue atorvastatin. (6) Hypothyroidism: Continue levothyroxine. (7) DVT prophylaxis: (8) Discharge planning issues: Subjective Recheck for chest pain and other problems. Patient seen in his room around 13:10. visiting. Seen this morning by Dr. Caicedo for Cardiology consultation. Stress test negative. Chest pain felt to be musculoskeletal in nature. Physical Exam Constitutional: no acute distress Respiratory: no respiratory distress Auscultation: lungs clear to auscultation bilaterally Cardiovascular: Rate/Rhythm: regular rate and regular rhythm Heart Sounds: + murmur (II/ sys murmur at base); no gallop and no cardiac rub Vessels: no JVD Extremities: no calf tenderness and no edema Gastrointestinal (Abdomen): normal bowel sounds, soft, nontender, no hepatosplenomegaly Skin: no rashes, warm and dry Psychiatric: Orientation: alert and oriented x 3 Results & Data Vital Signs (Past 12 Hours) Vital Signs Temp Pulse Pulse Resp BP Pulse Ox 05/03/19 12:00 37.0 C 94 H 18 113/67 93 05/03/19 08:04 36.6 C 58 L 18 124/72 95 05/03/19 07:30 58 L 05/03/19 04:00 36.4 C L 66 18 124/70 96 Laboratory Results Laboratory Results - last 24 hr 05/02/19 05/03/19 05/03/19 20:05 00:10 06:32 WBC 7.03 RBC 4.46 L Hgb 13.5 L Hct 40.5 L MCV 90.8 MCH 30.3 MCHC 33.3 Plt Count 231 Sodium Potassium Chloride Carbon Dioxide Anion Gap BUN Creatinine Est Cr Clr Drug Dosing Est GFR ( Amer) Est GFR (Non-Af Amer) BUN/Creatinine Ratio Glucose POC Glucose 156 H Estimat Average Glucose Hemoglobin A1c Calcium Troponin I < 0.015 Triglycerides Cholesterol LDL Cholesterol, Calc VLDL Cholesterol, Calc HDL Cholesterol Cholesterol/HDL Ratio 05/03/19 05/03/19 05/03/19 06:32 06:32 07:25 WBC RBC Hgb Hct MCV MCH MCHC Plt Count Sodium 140 Potassium 4.3 Chloride 108 H Carbon Dioxide 28 Anion Gap 4.0 BUN 18 Creatinine 0.82 Est Cr Clr Drug Dosing 94.7 Est GFR ( Amer) 103.1 Est GFR (Non-Af Amer) 89.0 BUN/Creatinine Ratio 21.8 H Glucose 158 H POC Glucose 181 H Estimat Average Glucose 243 Hemoglobin A1c 10.1 H Calcium 8.3 L Troponin I Triglycerides 165 H Cholesterol 103 LDL Cholesterol, Calc 46 VLDL Cholesterol, Calc 33 HDL Cholesterol 24 Cholesterol/HDL Ratio 4 05/03/19 11:28 WBC RBC Hgb Hct MCV MCH MCHC Plt Count Sodium Potassium Chloride Carbon Dioxide Anion Gap BUN Creatinine Est Cr Clr Drug Dosing Est GFR ( Amer) Est GFR (Non-Af Amer) BUN/Creatinine Ratio Glucose POC Glucose 185 H Estimat Average Glucose Hemoglobin A1c Calcium Troponin I Triglycerides Cholesterol LDL Cholesterol, Calc VLDL Cholesterol, Calc HDL Cholesterol Cholesterol/HDL Ratio ECG Additional Comments: EKG performed this morning at 0646 reviewed and demonstrated normal sinus rhythm at 70/minute, no acute ST or T wave abnormalities.
--- NOTE | 2019-05-03 20:18 | Discharge Summary ---
Date of Service Date of Admission: 05/02/19 Date of Discharge: 05/03/19 Admission HPI Per Admitting Provider This is a 69-year-old male with a PMH of CAD (s/p CABG x 4 in 2014), DM II, hypothyroidism who presents with intermittent chest pain beginning 2 days ago. Patient first experienced chest pain 2 nights ago when sitting in his recliner. Describes pain as squeezing across chest with radiation down left arm. It resolved spontaneously after 20 minutes. Earlier today, patient had an active morning with dog walking and first developed chest pain after sitting down for breakfast around 0730. Described it as a more intense squeezing pain across his chest with associated numbness in left arm and shortness of breath. No diaphoresis, nausea or vomiting. Episode lasted for 15 minutes and then resolved spontaneously. Had another episode a few hours later after working on a house project that resolved after 1 dose of nitro. Had third episode of pain just before lunch and was brought by to ED for further evaluation. Received aspirin in route and was chest pain-free by time of arrival. Denies any fever, chills, lightheadedness, headache, palpitations, SOB, wheezing, nausea, vomiting, abdominal pain, dysuria, diarrhea or constipation. Follows with Dr. Caicedo in cardiology clinic. Reports not having needed nitroglycerin since CABG in 2015 until this morning. Patient is hemodynamically stable. EKG with a normal sinus rhythm and no acute ischemic change. Initial troponin negative. Chest pain without active disease in chest. Will be monitored on telemetry. Admission Exam Per Admitting Provider General Appearance: WD/WN, no apparent distress, resting comfortably Head: normocephalic, atraumatic Eyes: normal inspection, PERRL, EOMI ENT: hearing grossly normal, pharynx normal (moist mucous membranes) Neck: supple, no JVD, no adenopathy Respiratory/Chest: no chest wall tenderness, lungs clear to auscultation. No wheezes, rales or rhonci. No respiratory distress or accessory muscle use Cardiovascular: regular rate, rhythm, no murmur, normal peripheral pulses Abdomen/GI: normal bowel sounds, soft, non-tender to palpation Extremities/Musculoskelatal: normal inspection, no calf tenderness, normal capillary refill, no pedal edema Neurologic/Psych: alert, normal mood/affect, oriented x 3 Skin: normal color, warm/dry Principal Diagnosis chest pain, noncardiac Discharge Data Allergies Allergy/AdvReac Type Severity Reaction Status Date / Time No Known Allergies Allergy Unverified 05/02/19 12:30 Consultations 05/02/19 13:03 ED Decision to Admit Stat 05/03/19 08:00 Consult Cardiology Routine Hospital Course (1) Chest pain: Presented to ED with chest pain that occurred after doing a lot of yard work. Known ischemic heart disease, status post CABG. No acute EKG changes. Serum troponins negative. Seen in consultation by Cardiology. Echo demonstrated normal left ventricular wall motion and systolic function. Stress test did not show any evidence of stress-induced ischemia. Chest pain felt to be musculoskeletal in origin. Alternatively, consider GI etiology such as GERD or esophageal spasm. Further evaluation as necessary if symptoms persist. (2) CAD (coronary artery disease): CAD, s/p CABG 2014. Acute IL and stress-induced ischemia ruled out as discussed above. Continue aspirin, lisinopril, statin. (3) Heart murmur: II/ systolic murmur at base. Echo demonstrated aortic valve sclerosis without significant stenosis as well as mild aortic regurgitation. (4) Diabetes mellitus, type II: Diabetes mellitus type 2 managed with metformin and glipizide. Blood sugars as high as 214. Hemoglobin A1c 10.1. Recently had steroid injection for shoulder pain and systemic steroids for bronchitis. Blood sugars were in the 400s a few weeks ago while taking prednisone. Discharge on usual regimen with close follow-up with PCP. (5) Dyslipidemia: Calculated LDL 46. Continue atorvastatin. (6) Hypothyroidism: Continue levothyroxine. (7) DVT prophylaxis: SQ enoxaparin. (8) Discharge planning issues: Discharged to home. Primary Care follow-up with Larry Padilla PA-C. Cardiology follow-up with Dr. Caicedo. Total Time Total Time Spent Total Time Spent (In Minutes): 30 Discharge Plan Discharge Items Patient Disposition: Home - Self-Care Reason For Visit: chest pain Discharge Diagnosis: chest pain- no sign of heart attack Condition: Good Discharge Goals: Decrease discomfort and Prevent disease Activity: As commented below Activity Comment: avoid heavy lifting Non-emergency contact: Primary Care Provider, Hospitalist and Operater Call non-emergency contact if: you have any medication questions and your symptoms worsen Follow-up/Referrals: Sascha,Erasmo L, DO [Family Provider] - Larry Padilla PA-C [Primary Care Provider] - (05/07/2019 9:20 AM Larry Padilla Jr., [facility], [place]) Diet: Carb Consistent or DM2 and Heart Healthy Addtl Provider Instructions: MEDICATION CHANGES: May take Extra Strength Tylenol, 2 pills every 8 hours as needed for pain. SUMMARY OF TEST RESULTS: No sign of heart attack. Dr. Caicedo was pleased with stress test results. You have a heart murmur, but it is not serious. LDL cholesterol was 46. This is an excellent level. Keep on taking atorvastatin (Lipitor). Hgb A1C was 10.1. This indicates that your blood sugars have been running too high. Continue current medications for now. Please discuss further with Larry Padilla when you see him. RECOMMENDATIONS FOR FOLLOW-UP: Follow-up with Orthopedics as necessary for shoulder pain. Let Larry Padilla know if you keep on having problems. OTHER INSTRUCTIONS: Seek medical attention if you have: * temperature above 101 * chest pain or trouble breathing * abdominal pain, nausea, vomiting * diarrhea, dark stools or bloody stools * any unanswered questions or concerns Call 911 if symptoms are severe. Please take good care of yourself. Call if you have any questions or problems. My cell # is [phone]. You can also reach a [facility] hospitalist on duty at [facility] 24 hours a day by calling [phone]. Prescriptions: New acetaminophen [Tylenol Extra Strength] 500 mg tablet 1,000 mg PO TID PRN (Reason: pain) Qty: 60 RF: 0 Continued metformin 500 mg tablet 500 mg PO BID RF: 0 glipizide 10 mg tablet 10 mg PO BID RF: 0 ascorbic acid (vitamin C) [Vitamin C] 500 mg Tablet 500 mg PO QAM RF: 0 sertraline 25 mg tablet 25 mg PO QAM RF: 0 montelukast 10 mg tablet 10 mg PO QAM RF: 0 levothyroxine [Levoxyl] 200 mcg tablet 200 mcg PO QAM RF: 0 diphenhydramine-acetaminophen [Tylenol PM Extra Strength] 25-500 mg Tablet 2 tab PO HS PRN (Reason: Pain/Insomnia) RF: 0 lisinopril 2.5 mg tablet 2.5 mg PO QPM RF: 0 omega 6-gxv-nii-fish oil [Fish Oil] 1,000 mg (120 mg-180 mg) Capsule 1 cap PO QAM RF: 0 atorvastatin 80 mg tablet 80 mg PO HS RF: 0 omeprazole 20 mg capsule,delayed release(DR/EC) 20 mg PO HS RF: 0 tramadol 50 mg Tablet 50 mg PO Q6H PRN (Reason: Pain) RF: 0 benzonatate [Tessalon Perles] 100 mg Capsule 100 mg PO TID PRN (Reason: Cough) RF: 0 ferrous sulfate 325 mg (65 mg iron) Tablet 325 mg PO DAILY RF: 0 nitroglycerin 0.4 mg Tablet, Sublingual 0.4 mg sublingual UD RF: 0 aspirin 81 mg Tablet,Delayed Release (Dr/Ec) 81 mg PO DAILY RF: 0 Stand-Alone Forms: Call Back Authorization, [facility] Discharge Orders: Discharge Order (Routine); Ordered 05/03/19 Ordered By: Larry Zhu Admission Data Admit Date/Time: 05/02/19 14:03 Attending Provider: Larry Zhu Admit Provider: Katie Bailey Primary Care Provider: Larry Padilla Other Providers: Katie Bailey ; Gerson Kingsley Service: Telemetry Other Interventions: Discharge Summary Assessment (RN) Last Done: 05/03/19 13:44 Pending Studies at Discharge: No DC Date/Time DO NOT enter until pt leaves facility: 05/03/19 14:06
== END 2019-05-03 14:06 | disposition home or self-care (01) ==
LOC: 2S 11:47 → ED 11:47 → 2S 14:44

== ENCOUNTER 2022-06-17 18:04 | Observation (INO) ==
--- NOTE | 2022-06-17 18:29 | Emergency Department Note ---
Impression & Plan Atypical chest pain, CAD (coronary artery disease), History of coronary artery bypass graft ED Provider Note NAME: NANI SAUNDERS AGE: 72 SEX: M : 1950 ARRIVES VIA: Walk-In INFORMANT: [Patient][, ] ED PROVIDER(S): [Joseph Madera MD] Chief Complaint: Chest pain HPI: Patient presents due to concern for chest pain which began around 8:00 this morning. Patient states that he had his pain from about 8A to 10A and it resolves with nitroglycerin. The patient denies any fevers or chills. He does have mild frontal headache for which she did take 2 Tylenol. This mildly improved it. Patient denies any falls or trauma. The patient is compliant with his medications and denies any alcohol or tobacco use. Patient does have a prior history of CAD and CABG and does follow with Dr. Caicedo. He was told that if he feels as though he needs to take a third nitro he should present to the emergency department. Patient states he still has some lower chest pain that is bandlike and squeezing. It is nonradiating but does complain of some heaviness and paresthesias in the bilateral upper extremities. No prior history of any DVT or PE. The patient denies any leg swelling or associated shortness of breath. Patient did feel sweaty earlier today during his bout of chest pain but also not sure if this is related to the heat. Patient states his current discomfort is 5 out of 10 in severity. ROS: See HPI for pertinent positives and negatives. A total of 10 systems were reviewed and otherwise negative. Past medical history: See below Surgical history: See below Social history: See below Physical Exam: GENERAL: NAD, [wearing a mask,] non-toxic. EYE EXAM: Normal conjunctiva. PERRL, no anisocoria and EOM's grossly intact w/o pain. NECK: Supple, no nuchal rigidity, no adenopathy, non-tender. No signs of meningismus. FROM of the neck with good chin to chest and neck extension. No stridor. LUNGS: Clear to auscultation. Normal chest wall mechanics. HEART: NSR, no MRG. ABDOMEN: Abdomen soft, non-tender, normo-active bowel sounds, no masses, no rebound or guarding. BACK: No CVA TTP. SKIN: No rashes and no bruising. UPPER EXTREMITIES: Upper extremities are grossly normal. LOWER EXTREMITIES: Grossly normal, no edema. NEURO EXAM: A&O x3, cranial nerves II-XII grossly intact, normal speech, moves all 4 extremities. Differential diagnoses: Cardiac ischemia, aortic dissection, pulmonary embolism, pneumothorax, pneumonia, pericarditis, myocarditis, esophageal rupture, GERD, cholecystitis, pancreatitis, musculoskeletal, as well as other pathologies. Course: Patient was seen and evaluated the bedside. Full history physical exam was performed. EKG interpreted by me Normal sinus rhythm, rate 75, normal intervals, left axis deviation, T wave version in V2 no obvious ST elevations. T wave inversion is new and the patient's left axis is new from comparison EKG completed May 03, 2019 Imaging Studies: See Below Cardiac monitoring: An order was placed for continuous cardiac monitoring. The monitor shows a rate of 77 with sinus rhythm. MDM: Patient presented due to concern for chest pain. Patient may have mild EKG changes from comparison. No ST elevations. Patient was treated with nitro and small amount of morphine. Blood work was obtained. Patient declined morphine but was given Tylenol. Patient was also ordered the rest of the full dose aspirin. The patient did have mild improvement the patient's chest pain. Given the patient's prior history of heart disease with slight EKG changes nothing and reasonable for continued management this time. I did speak with the on-call hospitalist Dr. Maguire. The patient was admitted to the medicine service. Chest x-ray was negative Past Med/Surg History Medical History CAD (coronary artery disease) Diabetes mellitus, type II Hypothyroidism Mood disorder Surgical History History of cardiac cath (~02/2015) History of coronary artery bypass graft CABG x 4 at [facility] 03/15/15 Family History Other Family history unknown Social History Smoking Status: Never smoker Years Smoked: 60; Cigarettes Per Day: no longer for awhile; Second Hand Exposure: No; Hx Alcohol Use: Yes Alcohol type: hard liquor Hx Substance Use: No Preferred Language: Mongolian Communication Ability: Effective Inside Sales Person Required: No Beliefs That Will Affect Care: None marital status: Current Living Situation: Spouse Feels Safe at Home: Yes Assistive Devices: None Allergies Allergies Allergy/AdvReac Type Severity Reaction Status Date / Time No Known Allergies Allergy Verified 06/17/22 20:25 Home Meds Home Medications Medication Instructions Recorded Confirmed ascorbic acid (vitamin C) 500 mg 500 mg PO QAM 05/02/19 06/17/22 tablet (Vitamin C) aspirin 81 mg tablet,delayed 81 mg PO QAM 05/02/19 06/17/22 release atorvastatin 80 mg tablet 80 mg PO HS 05/02/19 06/17/22 ferrous sulfate 325 mg (65 mg 325 mg PO QAM 05/02/19 06/17/22 iron) tablet lisinopril 2.5 mg tablet 2.5 mg PO QPM 05/02/19 06/17/22 metformin 500 mg tablet 1,000 mg PO BID 05/02/19 06/17/22 nitroglycerin 0.4 mg sublingual 0.4 mg sublingual UD 05/02/19 06/17/22 tablet omega 5-eby-iid-fish oil 1,000 mg 1 cap PO BID 05/02/19 06/17/22 (120 mg-180 mg) capsule (Fish Oil) omeprazole 20 mg capsule,delayed 20 mg PO HS 05/02/19 06/17/22 release sertraline 25 mg tablet 25 mg PO QAM 05/02/19 06/17/22 tramadol 50 mg tablet 50 mg PO Q6H PRN Pain 05/02/19 06/17/22 empagliflozin 10 mg tablet 10 mg PO QAM 06/17/22 06/17/22 (Jardiance) levothyroxine 175 mcg tablet 175 mcg PO DAILYBB 06/17/22 06/17/22 (Synthroid) metoprolol succinate 25 mg 12.5 mg PO DAILY 06/17/22 06/17/22 tablet,extended release 24 hr Results & Data (ED) Vital Signs Vital Signs - 24 hr 06/17/22 18:10 06/17/22 18:30 06/17/22 19:52 Temperature 36.5 C Temperature Source Temporal Artery Scan Pulse Rate 83 Pulse Rate [Apical] Pulse Rate from SpO2 Sensor Respiratory Rate 18 Respiratory Effort / Characteristics Non-Labored Spontaneous Respiratory Depth Normal Respiratory Pattern Regular Blood Pressure 138/72 Blood Pressure [Right Arm] Blood Pressure Mean 94 Blood Pressure Mean [Right Arm] Pulse Oximetry 95 97 95 Oxygen Delivery Method Room Air Room Air Room Air Sepsis Recent Fever Within 48 Hours No Sepsis New/Unexplained Change in Mental Status No Sepsis Action Taken by Nursing No Action Required 06/17/22 19:52 06/17/22 18:32 06/17/22 18:40 Temperature Temperature Source Pulse Rate 76 76 Pulse Rate [Apical] 68 Pulse Rate from SpO2 Sensor 74 Respiratory Rate 20 21 19 Respiratory Effort / Characteristics Non-Labored Respiratory Depth Normal Respiratory Pattern Blood Pressure Blood Pressure [Right Arm] 178/87 H Blood Pressure Mean Blood Pressure Mean [Right Arm] 117 Pulse Oximetry 95 95 Oxygen Delivery Method Room Air Sepsis Recent Fever Within 48 Hours Sepsis New/Unexplained Change in Mental Status Sepsis Action Taken by Nursing 06/17/22 18:50 06/17/22 19:00 06/17/22 19:10 Temperature Temperature Source Pulse Rate 74 74 71 Pulse Rate [Apical] Pulse Rate from SpO2 Sensor 73 74 72 Respiratory Rate 21 19 20 Respiratory Effort / Characteristics Respiratory Depth Respiratory Pattern Blood Pressure Blood Pressure [Right Arm] Blood Pressure Mean Blood Pressure Mean [Right Arm] Pulse Oximetry 95 95 95 Oxygen Delivery Method Sepsis Recent Fever Within 48 Hours Sepsis New/Unexplained Change in Mental Status Sepsis Action Taken by Nursing 06/17/22 19:20 06/17/22 19:30 06/17/22 19:40 Temperature Temperature Source Pulse Rate 89 68 Pulse Rate [Apical] Pulse Rate from SpO2 Sensor 74 73 Respiratory Rate 20 20 Respiratory Effort / Characteristics Respiratory Depth Respiratory Pattern Blood Pressure Blood Pressure [Right Arm] Blood Pressure Mean Blood Pressure Mean [Right Arm] Pulse Oximetry 93 94 96 Oxygen Delivery Method Sepsis Recent Fever Within 48 Hours Sepsis New/Unexplained Change in Mental Status Sepsis Action Taken by Nursing 06/17/22 19:50 06/17/22 20:00 06/17/22 20:10 Temperature Temperature Source Pulse Rate Pulse Rate [Apical] Pulse Rate from SpO2 Sensor 69 68 69 Respiratory Rate Respiratory Effort / Characteristics Respiratory Depth Respiratory Pattern Blood Pressure Blood Pressure [Right Arm] Blood Pressure Mean Blood Pressure Mean [Right Arm] Pulse Oximetry 95 95 95 Oxygen Delivery Method Sepsis Recent Fever Within 48 Hours Sepsis New/Unexplained Change in Mental Status Sepsis Action Taken by Nursing 06/17/22 20:22 06/17/22 20:30 06/17/22 20:40 Temperature Temperature Source Pulse Rate 66 Pulse Rate [Apical] Pulse Rate from SpO2 Sensor 72 63 66 Respiratory Rate 18 Respiratory Effort / Characteristics Respiratory Depth Respiratory Pattern Blood Pressure Blood Pressure [Right Arm] Blood Pressure Mean Blood Pressure Mean [Right Arm] Pulse Oximetry 95 95 94 Oxygen Delivery Method Sepsis Recent Fever Within 48 Hours Sepsis New/Unexplained Change in Mental Status Sepsis Action Taken by Assisted Medications Current Medication List: was personally reviewed by me Laboratory Data Attestation: I reviewed the patient's lab results. Result diagrams: 06/17/22 18:20 06/17/22 18:20 Lab Results 06/17/22 06/17/22 06/17/22 Range/Units 18:20 18:20 18:20 WBC 7.95 (4.8-10.8) K/ul RBC 4.98 (4.63-6.08) M/uL Hgb 15.0 (14.0-18.0) g/dl Hct 45.2 (40.1-51.0) % MCV 90.8 (80.0-100.0) fL MCH 30.1 (25.0-34.0) pg MCHC 33.2 (32.0-36.0) g/dL RDW Std Deviation 42.3 (36.4-46.3) fL RDW Coeff of Liang 12.9 (11.5-14.5) % Plt Count 264 (130-400) K/uL MPV 10.0 (9.4-12.4) fL Immature Gran % (Auto) 0.8 % Neut % (Auto) 73.6 % Lymph % (Auto) 13.1 % Boyle % (Auto) 10.8 % Eos % (Auto) 1.3 % Baso % (Auto) 0.4 % Neut # (Auto) 5.86 (1.4-6.5) K/uL Lymph # (Auto) 1.04 L (1.2-3.4) K/uL Boyle # (Auto) 0.86 H (0.24-0.82) K/uL Eos # (Auto) 0.10 (0-0.50) K/uL Baso # (Auto) 0.03 (0-0.2) K/uL Immature Gran # (Auto) 0.06 H (0.00-0.02) K/uL PT 10.5 (9.0-12.0) Seconds INR 1.0 (0.9-1.1) APTT 26.4 (21.0-31.0) Seconds PTT Ratio 1.0 Sodium 139 (136-145) mmol/L Potassium 4.1 (3.5-5.1) mmol/L Chloride 103 (98-107) mmol/L Carbon Dioxide 28 (21-32) mmol/L Anion Gap 8 (3-11) BUN 16 (6-23) mg/dl Creatinine 0.90 (0.6-1.4) mg/dl Est Cr Clr Drug Dosing 80.0 ml/min Est GFR ( Amer) 97.2 ml/min Est GFR (Non-Af Amer) 83.8 ml/min BUN/Creatinine Ratio 17.8 (10-20) Glucose 184 H (70-99(Fasting)) mg/dl Calcium 9.3 (8.5-10.1) mg/dl Total Bilirubin 0.4 (0.2-1.0) mg/dl AST 20 (13-39) U/L ALT 23 (7-52) U/L Alkaline Phosphatase 101 (34-104) U/L Troponin I High Sens 8.0 (0-20) pg/ml Total Protein 7.0 (6.0-8.3) gm/dl Albumin 4.3 (3.4-5.0) gm/dl Globulin 2.7 (2.5-4.0) gm/dl Albumin/Globulin Ratio 1.6 (0.9-2) SARS-CoV-2, RNA, NAAT (NEGATIVE) 06/17/22 Range/Units 20:25 WBC (4.8-10.8) K/ul RBC (4.63-6.08) M/uL Hgb (14.0-18.0) g/dl Hct (40.1-51.0) % MCV (80.0-100.0) fL MCH (25.0-34.0) pg MCHC (32.0-36.0) g/dL RDW Std Deviation (36.4-46.3) fL RDW Coeff of Liang (11.5-14.5) % Plt Count (130-400) K/uL MPV (9.4-12.4) fL Immature Gran % (Auto) % Neut % (Auto) % Lymph % (Auto) % Boyle % (Auto) % Eos % (Auto) % Baso % (Auto) % Neut # (Auto) (1.4-6.5) K/uL Lymph # (Auto) (1.2-3.4) K/uL Boyle # (Auto) (0.24-0.82) K/uL Eos # (Auto) (0-0.50) K/uL Baso # (Auto) (0-0.2) K/uL Immature Gran # (Auto) (0.00-0.02) K/uL PT (9.0-12.0) Seconds INR (0.9-1.1) APTT (21.0-31.0) Seconds PTT Ratio Sodium (136-145) mmol/L Potassium (3.5-5.1) mmol/L Chloride (98-107) mmol/L Carbon Dioxide (21-32) mmol/L Anion Gap (3-11) BUN (6-23) mg/dl Creatinine (0.6-1.4) mg/dl Est Cr Clr Drug Dosing ml/min Est GFR ( Amer) ml/min Est GFR (Non-Af Amer) ml/min BUN/Creatinine Ratio (10-20) Glucose (70-99(Fasting)) mg/dl Calcium (8.5-10.1) mg/dl Total Bilirubin (0.2-1.0) mg/dl AST (13-39) U/L ALT (7-52) U/L Alkaline Phosphatase (34-104) U/L Troponin I High Sens (0-20) pg/ml Total Protein (6.0-8.3) gm/dl Albumin (3.4-5.0) gm/dl Globulin (2.5-4.0) gm/dl Albumin/Globulin Ratio (0.9-2) SARS-CoV-2, RNA, NAAT NEGATIVE (NEGATIVE) Administered Medications Atorvastatin Calcium (Atorvastatin 40 Mg Tab) 80 mg PO HS PATRICIO Stop: 07/17/22 22:35 Last Admin: 06/17/22 23:56 Dose: 80 mg Documented By: DMM Insulin Aspart (Insulin Aspart Per Unit) 0 units SC ACHS PATRICIO Stop: 07/17/22 22:35 Last Admin: 06/17/22 23:56 Dose: Not Given Documented By: DMM Lisinopril (Lisinopril 2.5 Mg Tab) 2.5 mg PO QPM PATRICIO Stop: 07/17/22 22:35 Last Admin: 06/17/22 23:56 Dose: 2.5 mg Documented By: DMM Pantoprazole Sodium (Pantoprazole 40 Mg Tab) 40 mg PO HS PATRICIO Stop: 07/17/22 22:35 Last Admin: 06/17/22 23:56 Dose: 40 mg Documented By: DMM Discontinued Medications Acetaminophen (Acetaminophen 500 Mg Tab) 1,000 mg PO NOW STA Stop: 06/17/22 19:21 Last Admin: 06/17/22 19:24 Dose: 1,000 mg Documented By: ES Aspirin (Aspirin Chew 324 Mg) 243 mg PO NOW STA Stop: 06/17/22 18:53 Last Admin: 06/17/22 19:17 Dose: 243 mg Documented By: ES Morphine Sulfate (Morphine Sulfate 2 Mg/Ml Carp) 2 mg IV NOW STA Stop: 06/17/22 18:53 Last Admin: 06/17/22 19:21 Dose: Not Given Documented By: ES Nitroglycerin (Nitroglycerin Sl 0.4 Mg/Tab Tab) 0.4 mg SL NOW STA Stop: 06/17/22 18:53 Last Admin: 06/17/22 19:17 Dose: 0.4 mg Documented By: ES Imaging Data Radiologist's Impression: Chest X-Ray 06/17/22 20:01 XR chest 1V portable CLINICAL HISTORY: chest pain. COMPARISON STUDY: 05/02/2019 TECHNIQUE: 1 view of the chest FINDINGS: Single frontal view of the chest demonstrates the cardiomediastinal silhouette to be within normal limits. The lungs are clear of alveolar opacities. There is no evidence for pleural effusion. There is no evidence for vascular congestion. There is no acute osseous pathology. IMPRESSION: 1. No acute cardiopulmonary disease. ACT 112: Negative or not required by law. Electronically signed by: Mal Johnston M.D. 06/17/2022 8:37 PM Discharge Plan Visit Data Chief Complaint: Chest Pain Stated Complaint: CHEST PAIN ED Provider: Joseph Madera Discharge Problem: Atypical chest pain, CAD (coronary artery disease), History of coronary artery bypass graft Patient Disposition: Admitted As Inpatient Discharge Instructions Interventions: ED Discharge Assessment Last Done: 06/17/22 22:08
[2022-06-17 18:43] LABS: Basophils # (auto) 0.03 K/uL (0-0.2); Basophils % (auto) 0.4 %; Eosinophils % (auto) 1.3 %; Hematocrit (blood only) 45.2 % (40.1-51.0); Immature Granulocytes # (auto) 0.06 K/uL (0.00-0.02); Immature Granulocytes % (auto) 0.8 %; Lymphocytes # (auto) 1.04 K/uL (1.2-3.4); Lymphocytes % (auto) 13.1 %; Mean Corpuscular Hemoglobin 30.1 pg (25.0-34.0); Mean Corpuscular Hgb Conc 33.2 g/dL (32.0-36.0); Mean Corpuscular Volume 90.8 fL (80.0-100.0); Monocytes # (auto) 0.86 K/uL (0.24-0.82); Monocytes % (auto) 10.8 %; Neutrophils # (auto) 5.86 K/uL (1.4-6.5); Neutrophils % (auto) 73.6 %; Platelet Count 264 K/uL (130-400); RDW Coefficient of Variation 12.9 % (11.5-14.5); RDW Standard Deviation 42.3 fL (36.4-46.3); Red Blood Count 4.98 M/uL (4.63-6.08); White Blood Count 7.95 K/ul (4.8-10.8)
[2022-06-17] MEDS ORDERED: ASPIRIN CHEW 324 MG PO STA (18:52)
[2022-06-17] MEDS ORDERED: MoRPHine SULFATE 2 MG/ML CARP IV STA (18:52)
[2022-06-17] MEDS ORDERED: NITROGLYCERIN SL 0.4 MG/TAB TAB SL STA (18:52)
[2022-06-17 19:10] LABS: Partial Thromboplastin Time 26.4 Seconds (21.0-31.0); Prothrombin Time 10.5 Seconds (9.0-12.0)
[2022-06-17 19:14] LABS: Albumin Globulin Ratio 1.6 (0.9-2); Albumin Level 4.3 gm/dl (3.4-5.0); BUN Creatinine Ratio 17.8 (10-20); Bilirubin,Total 0.4 mg/dl (0.2-1.0); Calcium 9.3 mg/dl (8.5-10.1); Est GFR (African American) 97.2 ml/min; Est GFR (Non-African American) 83.8 ml/min; Globulin 2.7 gm/dl (2.5-4.0); Potassium 4.1 mmol/L (3.5-5.1)
[2022-06-17] MEDS ORDERED: ACETAMINOPHEN 500 MG TAB PO STA (19:20)
--- NOTE | 2022-06-17 20:39 | XRay Report ---
XR chest 1V portable CLINICAL HISTORY: chest pain. COMPARISON STUDY: 05/02/2019 TECHNIQUE: 1 view of the chest FINDINGS: Single frontal view of the chest demonstrates the cardiomediastinal silhouette to be within normal li mits. The lungs are clear of alveolar opacities. There is no evidence for pleural effusion. There is no evidence for vascular congestion. There is no acute osseous pathology. IMPRESSION: 1. No acute cardiopulmonary disease. ACT 112: Negative or not required by law. Electronically signed by: Mal Johnston M.D. 06/17/2022 8:37 PM
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
[2022-06-17] MEDS ORDERED: NITROGLYCERIN SL 0.4 MG/TAB TAB SL PRN (22:36)
[2022-06-17] MEDS ORDERED: ATORVASTATIN 40 MG TAB PO SCH (22:36)
[2022-06-17] MEDS ORDERED: ACETAMINOPHEN 325 MG TAB PO PRN (22:36)
[2022-06-17] MEDS ORDERED: POLYETHYLENE (MIRALAX) 17 GM PACK PO PRN (22:36)
[2022-06-17] MEDS ORDERED: lisinopril 2.5 MG TAB PO SCH (22:36)
[2022-06-17] MEDS ORDERED: traMADol HCL 50 MG TABLET PO PRN (22:36)
[2022-06-17] MEDS ORDERED: PANTOprazole 40 MG TAB PO SCH (22:36)
[2022-06-17] MEDS ORDERED: GLUCAGON FOR INJ 1 MG VIAL IM PRN (23:45)
[2022-06-17] MEDS ORDERED: CARBOHYDRATES FOR HYPOGLYCEMIA PO PRN (23:45)
[2022-06-17] MEDS ORDERED: GLUCOSE 40% GEL 15 GM TUBE PO PRN (23:45)
[2022-06-17] MEDS ORDERED: GLUCOSE 10 TAB/TUBE PO PRN (23:45)
[2022-06-17] MEDS ORDERED: DEXTROSE 50% 50 ML SYRINGE IV PRN (23:45)
[2022-06-17] MEDS: INSULIN ASPART PER UNIT SC SCH (23:56)
[2022-06-18 05:54] LABS: Basophils # (auto) 0.04 K/uL (0-0.2); Basophils % (auto) 0.5 %; Eosinophils # (auto) 0.06 K/uL (0-0.50); Eosinophils % (auto) 0.8 %; Hematocrit (blood only) 41.8 % (40.1-51.0); Hemoglobin 14.1 g/dl (14.0-18.0); Immature Granulocytes # (auto) 0.04 K/uL (0.00-0.02); Immature Granulocytes % (auto) 0.5 %; Lymphocytes # (auto) 0.98 K/uL (1.2-3.4); Mean Corpuscular Hemoglobin 30.8 pg (25.0-34.0); Mean Corpuscular Hgb Conc 33.7 g/dL (32.0-36.0); Mean Corpuscular Volume 91.3 fL (80.0-100.0); Mean Platelet Volume 10.2 fL (9.4-12.4); Monocytes # (auto) 0.84 K/uL (0.24-0.82); Monocytes % (auto) 11.2 %; Neutrophils # (auto) 5.56 K/uL (1.4-6.5); Platelet Count 217 K/uL (130-400); RDW Coefficient of Variation 12.9 % (11.5-14.5); RDW Standard Deviation 42.7 fL (36.4-46.3); Red Blood Count 4.58 M/uL (4.63-6.08); White Blood Count 7.52 K/ul (4.8-10.8)
[2022-06-18 06:18] LABS: BUN Creatinine Ratio 15.9 (10-20); Calcium 8.8 mg/dl (8.5-10.1); Creatinine Clr Calc Pharmacy 87.5 ml/min; Est GFR (Non-African American) 87.1 ml/min; Magnesium 1.8 mg/dl (1.7-2.4); Potassium 4.4 mmol/L (3.5-5.1)
[2022-06-18] MEDS ORDERED: LEVOTHYROXINE SODIUM 175 MCG TABLET PO SCH (06:30)
[2022-06-18 07:31] LABS: Estimated Average Glucose 186 mg/dl; Hemoglobin A1C 8.1 % (4.5-5.6)
[2022-06-18] MEDS ORDERED: METOPROLOL SUCC 25MG EXT REL TAB PO SCH (09:00)
[2022-06-18] MEDS ORDERED: ASPIRIN 81 MG ECTAB PO SCH (09:00)
[2022-06-18] MEDS ORDERED: ASCORBIC ACID 500 MG TAB PO SCH (09:00)
[2022-06-18] MEDS ORDERED: FERROUS SULFATE 325 MG TAB PO SCH (09:00)
[2022-06-18] MEDS ORDERED: SERTRALINE HCL 50 MG TABLET PO SCH (09:00)
[2022-06-18] MEDS: INSULIN ASPART PER UNIT SC SCH ×2 (09:09→11:50)
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
--- NOTE | 2022-06-18 14:24 | Discharge Summary ---
Date of Service June 18, 2022 Admission HPI Per Admitting Provider A 72-year-old male with past medical history significant for type 2 diabetes, hyperlipidemia, hypothyroidism, CAD, history of osteoarthritis, depression, comes because of chest pain. The patient says in the morning at 8:00 a.m., he had chest pain, took a nitroglycerin, it seemed to help, in the middle of the day the pain went away. Then, at 5:00 p.m., again, the pain came back, he has taken again one dose of nitroglycerin and it was not that much improving, so he came back in the ER. In the ER, he got another dose of nitroglycerin and currently, he is chest pain free. In the morning, he also had a lot of sweat ing. Denies any shortness of breath. Had headache before taking nitroglycerin. With 2 Tylenols, now the headache is resolved. Denies any blurred visions, no earache, no runny nose, no sore throat, no cough. Feeling cold, no nausea, no abdominal pain. Normal bowel and bladder movements. Otherwise, he is ambulating okay. Currently, resting comfortably and hemodynamically stable. Admission Exam Per Admitting Provider GENERAL: The patient is of moderate build, not in acute distress. VITAL SIGNS: Temperature 36.5, pulse 68, respiratory rate 20, blood pressure 117/87, oxygen 95% on room air. HEENT: Pupils equal, round and reactive to light. Oral mucosa moist. NECK: No JVD. No neck masses. CARDIOVASCULAR: S1 and S2 heard. Regular rate and rhythm. No murmur, no gallop. RESPIRATORY SYSTEM: Normal AP diameter. No accessory muscle use. No wheezing, no crackles. ABDOMEN: Soft, bowel sounds present, nontender, no distention. CENTRAL NERVOUS SYSTEM: Cranial nerves II-XII grossly intact, nonfocal. EXTREMITIES: No edema, no erythema. Principal Diagnosis Chest pain Discharge Exam Constitutional + well hydrated; no acute distress Eyes PERRL, conjunctivae normal, anicteric sclerae ENMT external ear and nose normal, oropharynx normal Respiratory normal respiratory effort, lungs clear to auscultation Cardiovascular Rate/Rhythm: regular rate and regular rhythm S1 S2 Gastrointestinal (Abdomen) normal bowel sounds, soft, nontender, no hepatosplenomegaly Musculoskeletal no cyanosis or clubbing, extremities motor strength 5/5 Neurologic PERRL, EOMI, accommodation nl, no face palsy, no dysarthria Psychiatric A+Ox3, euthymic affect Discharge Data Allergies Allergy/AdvReac Type Severity Reaction Status Date / Time No Known Allergies Allergy Verified 06/17/22 20:25 Consultations 06/17/22 20:00 ED Decision to Admit Stat 06/18/22 08:00 Consult Cardiology Routine Hospital Course (1) Chest pain at rest: (2) History of coronary artery bypass graft: (3) Diabetes mellitus, type II: (4) CAD (coronary artery disease): Plan Patient presented with chest pain after working outside during the day Chest pain is currently resolved EKG noted TWI in V2 Trop trend was negative Patient was evaluated by [facility]. TTE noted mild conc LVH, no regional wall motion abnormalities, EF 55-60% mod AV sclerosis, mild AR Overnight tele noted 5 beat Vtach [facility] recommend increasing metoprolol succinate to 25mg daily Continue home antidiabetics, levothyroxine, aspirin and atorvastatin Patient to follow up with his Primary [facility] Total Time Total Time Spent Total Time Spent (In Minutes): 35 Total Time Includes: Examination of the Patient, Discharge Planning, Medication Reconciliation and Communication With Other Providers Discharge Plan Discharge Items Patient Disposition: Home - Self-Care Reason For Visit: CHEST PAIN Discharge Diagnosis: Chest pain Activity: Resume your previous activity Non-emergency contact: Primary Care Provider and [facility] Call non-emergency contact if: you have any medication questions and your symptoms worsen Follow-up/Referrals: Mor Lauren MD [Outside Practitioners] - (Date & Time 06/24/2022 1:40 PM Provider Mro Lauren, [facility] ) Diet: Carb Consistent or DM2 and Heart Healthy Addtl Attending Provider Instructions: Mr Grace You came to the hospital due to chest pain. You were evaluated by the [facility]. You metoprolol succinate was increased from 12.5mg to 25mg daily. Please continue to take your medications as prescribed and ensure follow up with your [facility]. It was a pleasure taking care of you. Pending Studies at Discharge: No Stand-Alone Forms: My [email or web address], Smoking Cessation Medications and DC Order Prescriptions: Continued metformin 500 mg tablet 1,000 mg PO BID ascorbic acid (vitamin C) [Vitamin C] 500 mg Tablet 500 mg PO QAM sertraline 25 mg tablet 25 mg PO QAM lisinopril 2.5 mg tablet 2.5 mg PO QPM omega 0-owa-uep-fish oil [Fish Oil] 1,000 mg (120 mg-180 mg) Capsule 1 cap PO BID atorvastatin 80 mg tablet 80 mg PO HS omeprazole 20 mg capsule,delayed release(DR/EC) 20 mg PO HS tramadol 50 mg Tablet 50 mg PO Q6H PRN (Reason: Pain) ferrous sulfate 325 mg (65 mg iron) Tablet 325 mg PO QAM nitroglycerin 0.4 mg Tablet, Sublingual 0.4 mg sublingual UD Rx Instructions: May repeat 3 times. If CP continues, call 911 aspirin 81 mg Tablet,Delayed Release (Dr/Ec) 81 mg PO QAM levothyroxine [Synthroid] 175 mcg tablet 175 mcg PO DAILYBB Jardiance 10 mg tablet 10 mg PO QAM Changed metoprolol succinate 25 mg tablet extended release 24 hr 25 mg PO DAILY Qty: 30 0RF Discharge Orders: Discharge Order (Routine); Ordered 06/18/22 Ordered By: Jenifer Wu/Other Patient Handouts: Managing Type 2 Diabetes Admission Data Admit Date/Time: 06/17/22 20:48 Attending Provider: Jenifer Day I. Admit Provider: Pablo Maguire Primary Care Provider: PCP,NO Other Providers: Pablo Maguire ; Erasmo Caicedo ; Norberto Donnelly ; Gerson Kingsley ; Andrei Jones ; Adis King ; Lm Patel ; Sonia Snell ; Kavya Olivera ; Sera Simons ; Serge Mario Other Interventions: Discharge Summary Assessment (RN) Last Done: 06/18/22 14:31
--- NOTE | 2022-06-19 05:39 | Electrocardiogram Report ---
Test Reason : Blood Pressure : / mmHG Vent. Rate : 075 BPM Atrial Rate : 075 BPM P-R Int : 138 ms QRS Dur : 102 ms QT Int : 384 ms P-R-T Axes : 060 -58 064 degrees QTc Int : 428 ms Normal sinus rhythm Possible Left atrial enlargement Left anterior fascicular block Abnormal ECG When compared with ECG of 03-MAY-2019 06:46, Left anterior fascicular block is now Present Confirmed by Eleazar Vargas ([id number]) on 06/19/2022 5:39:14 AM Referred By: REFERRED SELF Confirmed By:Eleazar Vargas
--- NOTE | 2022-06-19 05:58 | Electrocardiogram Report ---
Test Reason : Blood Pressure : / mmHG Vent. Rate : 083 BPM Atrial Rate : 083 BPM P-R Int : 150 ms QRS Dur : 098 ms QT Int : 374 ms P-R-T Axes : 057 -58 056 degrees QTc Int : 439 ms Normal sinus rhythm Possible Left atrial enlargement Left anterior fascicular block Poor R wave progression, consider anterior SD vs. lead placement vs. LVH Abnormal ECG When compared with ECG of 17-JUN-2022 18:14, No significant change was found Confirmed by Eleazar Vargas ([id number]) on 06/19/2022 5:57:47 AM Referred By: REFERRED SELF Confirmed By:Eleazar Vargas
[2022-06-19] MEDS ORDERED: METOPROLOL SUCC 25MG EXT REL TAB PO SCH (09:00)
== END 2022-06-18 15:25 | disposition home or self-care (01) ==
LOC: 2N 18:04 → ED 18:04 → 2N 22:08